=== PATIENT | female | born 1995 | race Two or more races ===

== ENCOUNTER 2018-09-23 11:20 | Inpatient (IN) | payer MEDICAID | END 2018-09-25 12:20 | disposition home or self-care (01) | LOC: LDRP 11:20 | PROC: 10E0XZZ Delivery of Products of Conception, External Approach (ICD-10-PCS; principal; ~2018-09-23) | DX: O42.92 Full-term premature rupture of membranes, unspecified as to length of time between rupture and onset of labor (principal); Z37.0 Single live birth ==